=== PATIENT | male | born 1985 ===

== ENCOUNTER 2020-06-25 10:41 | Emergency (ER) | payer OTHER ==
[~2020-06-25] VITALS: Ht 177.8 cm; Wt 77.1 kg
== END 2020-06-25 13:51 | disposition home or self-care (01) ==
LOC: ER 10:41
DX: S60.212A Contusion of left wrist, initial encounter (principal); W22.8XXA Striking against or struck by other objects, initial encounter; Y93.89 Activity, other specified; Y92.89 Other specified places as the place of occurrence of the external cause; Y99.8 Other external cause status